=== PATIENT | female | born 1950 | race Asian ===

== ENCOUNTER 2023-05-02 15:49 | Inpatient (IN) | payer OTHER ==
[~2023-05-02] VITALS: Ht 167.6 cm; Wt 57.2 kg
[2023-05-02 16:00] VITALS: BP_SYST 120; PULSE 123; RESP 18; TEMP 98.3; O2SAT 96
[2023-05-02 17:12] LABS: BILIRUBIN,URINE NEGATIVE (NEGATIVE); BLOOD, URINE 2+ (NEGATIVE); CLARITY/URINE CLEAR (CLEAR); COLOR,URINE YELLOW (YELLOW); GLUCOSE,URINE 2+ (NEGATIVE); KETONES,URINE TRACE (NEGATIVE); LEUKOCYTE ESTERASE ,URINE NEGATIVE (NEGATIVE); NITRITE, URINE NEGATIVE (NEGATIVE); PH,URINE 5.5 (5.0-8.0); PROTEIN URINE 1+ (NEGATIVE); UROBILINOGEN,URINE 0.2 (0.2-1.0)
[2023-05-02 17:13] LABS: BACTERIA,URINE FEW /HPF (None Seen); MUCUS,URINE None Seen /LPF (None Seen); RBC,URINE 0-3 /HPF (0-3); WBC,URINE 0-3 /HPF (0-3)
[2023-05-02 17:27] LABS: BASOPHILS % (AUTO) 0.2 % (0.0-2.0); HEMATOCRIT 40.2 % (36-48); HEMOGLOBIN 12.9 g/dL (12.0-16.0); LYMPHOCYTES # (AUTO) 0.7 K/uL (1.0-5.5); LYMPHOCYTES % (AUTO) 7.2 % (20.5-51.5); MEAN CORPUSCULAR HEMOGLOBIN 26 pg (27-31); MEAN CORPUSCULAR HGB CONC 32 % (32-36); MEAN CORPUSCULAR VOLUME 81 fL (79.0-98.0); MONOCYTES # (AUTO) 0.5 K/uL (0.0-1.0); MONOCYTES % (AUTO) 5.7 % (1.7-9.3); NEUTROPHILS # (AUTO) 8.4 K/uL (1.8-7.7); NEUTROPHILS % (AUTO) 86.9 % (40.0-70.0); PLATELET COUNT (AUTO) 170 K/uL (130-430); RED BLOOD CELL COUNT(AUTO) 4.96 MIL/uL (4.2-6.2); RED CELL DISTRIBUTION WIDTH 15.3 % (9.0-15.0); WHITE BLOOD COUNT (AUTO) 9.7 K/uL (4.8-10.8)
[2023-05-02] MEDS ORDERED: NACL 0.9% 1,000 ML IV ONE ×3 (17:45→21:45)
[2023-05-02] MEDS ORDERED: ONDANSETRON HCL 4 MG/2 ML VIAL IVP ONE ×2 (17:45→21:45)
[2023-05-02] MEDS ORDERED: KETOROLAC TROMETHAMINE 30 MG VIAL IVP ONE (17:45)
[2023-05-02] MEDS ORDERED: PANTOPRAZOLE SODIUM 40 MG/VIAL (PROTONIX) IVP ONE (17:45)
[2023-05-02 18:22] LABS: ALANINE AMINOTRANSFERASE 12 U/L (12-78); ALBUMIN 3.3 g/dL (3.4-4.8); ANION GAP 14 (5-15); ASPARTATE AMINOTRANSFERASE 12 U/L (10-37); CALCIUM 8.7 mg/dL (8.4-11.0); CARBON DIOXIDE 20 mmol/L (23-29); CHLORIDE 90 mmol/L (98-107); CREATININE 1.32 mg/dL (0.55-1.30); LIPASE 29 U/L (73-393); SODIUM SERUM 124 mmol/L (136-145); TOTAL BILIRUBIN 0.6 mg/dL (0.0-1.0); TOTAL PROTEIN, SERUM 7.6 g/dL (6.4-8.3); UREA NITROGEN, BLOOD 17 mg/dL (8-21)
[2023-05-02 18:24] LABS: GLUCOSE 409 mg/dL (74-106)
[2023-05-02] MEDS ORDERED: cefTRIAXone 1 GM in D5W 50 ML IV ONE (20:15)
[2023-05-02] MEDS ORDERED: INSULIN REGULAR, HUMAN 10 UNITS/0.1 ML, 3 ML VIAL IVP ONE (20:30)
[2023-05-02] MEDS ORDERED: cefTRIAXone 1 GM VIAL ONE (20:38)
[2023-05-02] MEDS ORDERED: METF-380 PO (20:40)
[2023-05-02] MEDS ORDERED: NEU300 PO (20:40)
[2023-05-02] MEDS ORDERED: LIP10 PO (20:40)
[2023-05-02] MEDS ORDERED: OSCD500 PO (20:40)
[2023-05-02] MEDS ORDERED: LOSA50TA3 PO (20:40)
[2023-05-02] MEDS ORDERED: SITA100T11 PO (20:40)
[2023-05-02] MEDS ORDERED: GLIP10TA21 PO (20:40)
[2023-05-03] VITALS (7 sets, daily range): BP systolic 86–137; PULSE 90–133; RESP 17–20; TEMP 97.7–101.7; O2SAT 95–99
[2023-05-03] MEDS ORDERED: DEXTROSE 50%-WATER 50 ML DISP.SYRIN IVP PRN (07:00)
[2023-05-03] MEDS ORDERED: GLUCOSE (DEXTROSE) ORAL GEL -Adults PO PRN (07:00)
[2023-05-03] MEDS ORDERED: D5W 1,000 ML IV PRN (07:00)
[2023-05-03] MEDS: PANTOPRAZOLE SODIUM 40 MG/VIAL (PROTONIX) IVP SCH (09:25)
[2023-05-03] MEDS: LEVOFLOXACIN 250 MG/D5W 50 ML IV SCH (09:27)
[2023-05-03 12:44] LABS: ABG O2 SAT% ESTIMATE 96.9 % (94.0-100.0); BLOOD GAS BASE EXCESS -4.2 mmol/L (-3.0-3.0); BLOOD GAS HCO3 18.7 mmol/L (21.0-27.0); BLOOD GAS PCO2 28.9 mmHg (35.0-45.0); BLOOD GAS PH 7.428 (7.350-7.450); BLOOD GAS PO2 86.2 mmHg (75.0-100.0)
[2023-05-03 12:52] LABS: ALLEN'S TEST POSITIVE (P)
[2023-05-03] MEDS: metroNIDAZOLE 500 mg/NS 100 ML IV SCH (21:23)
[2023-05-03] MEDS ORDERED: GABAPENTIN 100 MG CAPSULE PO ONE (23:30)
[2023-05-04] VITALS (8 sets, daily range): BP systolic 101–131; PULSE 78–89; RESP 16–18; TEMP 96.8–99.1; O2SAT 99–100
[2023-05-04] MEDS: INSULIN REGULAR, HUMAN 100 UNITS/ML, 3 ML VIAL (humuLIN R) SUBCUT PRN ×2 (06:07→12:07)
[2023-05-04] MEDS: PANTOPRAZOLE SODIUM 40 MG/VIAL (PROTONIX) IVP SCH (09:06)
[2023-05-04] MEDS: ATORVASTATIN 10 MG TABLET PO SCH (09:06)
[2023-05-04] MEDS: CALCIUM CARBONATE/VITAMIN D3 1 TAB TABLET PO SCH (09:06)
[2023-05-04] MEDS: glipiZIDE XL 5 MG TAB ( GLUCOTROL XL) PO SCH (09:07)
[2023-05-04] MEDS: LEVOFLOXACIN 250 MG/D5W 50 ML IV SCH (09:07)
[2023-05-04] MEDS: LOSARTAN POTASSIUM 50 MG TABLET (COZAAR) PO SCH (09:07)
[2023-05-04] MEDS ORDERED: ACETAMINOPHEN 325 MG TABLET PO ONE (13:15)
[2023-05-04] MEDS ORDERED: MENTHOL/ZINC OXIDE 113 GM OINT. TP PRN (14:30)
[2023-05-04] MEDS ORDERED: GABAPENTIN 100 MG CAPSULE PO ONE (14:30)
[2023-05-04] MEDS: FUROSEMIDE 20 MG TABLET PO SCH (22:31)
[2023-05-04] MEDS: metroNIDAZOLE 500 mg/NS 100 ML IV SCH (22:31)
[2023-05-04] MEDS: GABAPENTIN 100 MG CAPSULE PO SCH (22:31)
[2023-05-05 00:33] VITALS: BP_SYST 131; PULSE 86; RESP 16; TEMP 96.9; O2SAT 100
[2023-05-05] MEDS: INSULIN REGULAR, HUMAN 100 UNITS/ML, 3 ML VIAL (humuLIN R) SUBCUT PRN ×2 (00:35→12:03)
[2023-05-05] MEDS ORDERED: ACETAMINOPHEN 325 MG TABLET ONE (00:51)
[2023-05-05] MEDS: ACETAMINOPHEN 325 MG TABLET PO PRN (01:22)
[2023-05-05 10:35] LABS: BASOPHILS % (AUTO) 0.3 % (0.0-2.0); EOSINOPHILS # (AUTO) 0.1 K/uL (0.0-0.4); HEMATOCRIT 31.6 % (36-48); HEMOGLOBIN 10.6 g/dL (12.0-16.0); LYMPHOCYTES # (AUTO) 0.6 K/uL (1.0-5.5); LYMPHOCYTES % (AUTO) 16.1 % (20.5-51.5); MEAN CORPUSCULAR HEMOGLOBIN 26 pg (27-31); MEAN CORPUSCULAR HGB CONC 34 % (32-36); MEAN CORPUSCULAR VOLUME 78 fL (79.0-98.0); MONOCYTES # (AUTO) 0.4 K/uL (0.0-1.0); MONOCYTES % (AUTO) 11.6 % (1.7-9.3); NEUTROPHILS # (AUTO) 2.5 K/uL (1.8-7.7); PLATELET COUNT (AUTO) 135 K/uL (130-430); RED BLOOD CELL COUNT(AUTO) 4.06 MIL/uL (4.2-6.2); WHITE BLOOD COUNT (AUTO) 3.6 K/uL (4.8-10.8)
[2023-05-05 10:46] LABS: ANION GAP 12 (5-15); CARBON DIOXIDE 24 mmol/L (23-29); CHLORIDE 99 mmol/L (98-107); CREATININE 0.86 mg/dL (0.55-1.30); GLUCOSE 314 mg/dL (74-106); SODIUM SERUM 135 mmol/L (136-145); UREA NITROGEN, BLOOD 6 mg/dL (8-21)
[2023-05-05 10:48] LABS: POTASSIUM 2.9 mmol/L (3.5-5.1)
[2023-05-05] MEDS: LEVOFLOXACIN 250 MG/D5W 50 ML IV SCH (11:03)
[2023-05-05] MEDS: PANTOPRAZOLE SODIUM 40 MG/VIAL (PROTONIX) IVP SCH (11:04)
[2023-05-05] MEDS: ATORVASTATIN 10 MG TABLET PO SCH (11:49)
[2023-05-05] MEDS: FUROSEMIDE 20 MG TABLET PO SCH ×2 (11:49→21:08)
[2023-05-05] MEDS: CALCIUM CARBONATE/VITAMIN D3 1 TAB TABLET PO SCH (11:49)
[2023-05-05] MEDS: LOSARTAN POTASSIUM 50 MG TABLET (COZAAR) PO SCH (11:50)
[2023-05-05] MEDS: glipiZIDE XL 5 MG TAB ( GLUCOTROL XL) PO SCH (11:50)
[2023-05-05] MEDS ORDERED: DIPHENOXYLATE HCL/ATROP SULF 2.5 MG TAB PO PRN (14:45)
[2023-05-05 16:31] VITALS: O2SAT 98
[2023-05-05] MEDS ORDERED: POTASSIUM CHLORIDE 40 MEQ in NS 250 ML IV ONE (18:30)
[2023-05-05] MEDS: POTASSIUM CHLORIDE 20 mEq in 100 mL (PREMIX) 100 ML x 2 doses IV SCH ×2 (18:31→20:09)
[2023-05-05 19:00] VITALS: BP_SYST 133; PULSE 78; RESP 18; TEMP 97; O2SAT 100
[2023-05-05 20:00] VITALS: BP_SYST 133; PULSE 78; RESP 18; TEMP 97; O2SAT 100
[2023-05-05] MEDS: GABAPENTIN 100 MG CAPSULE PO SCH (21:08)
[2023-05-05] MEDS: VANCOMYCIN HCL ORAL SOLUTION 125 MG/5 ML, 150 ML PO SCH (21:09)
[2023-05-05] MEDS: metroNIDAZOLE 500 mg/NS 100 ML IV SCH (21:15)
[2023-05-06 00:11] VITALS: BP_SYST 137; PULSE 81; RESP 18; TEMP 98.1; O2SAT 100
[2023-05-06] MEDS: ACETAMINOPHEN 325 MG TABLET PO PRN (00:38)
[2023-05-06 07:00] LABS: ALANINE AMINOTRANSFERASE 50 U/L (12-78); ALBUMIN 2.5 g/dL (3.4-4.8); ANION GAP 11 (5-15); ASPARTATE AMINOTRANSFERASE 41 U/L (10-37); CALCIUM 8.3 mg/dL (8.4-11.0); CARBON DIOXIDE 27 mmol/L (23-29); CHLORIDE 100 mmol/L (98-107); CREATININE 0.75 mg/dL (0.55-1.30); GLUCOSE 159 mg/dL (74-106); SODIUM SERUM 138 mmol/L (136-145); TOTAL BILIRUBIN 0.5 mg/dL (0.0-1.0); TOTAL PROTEIN, SERUM 6.2 g/dL (6.4-8.3); UREA NITROGEN, BLOOD 7 mg/dL (8-21)
[2023-05-06 07:03] LABS: POTASSIUM 2.9 mmol/L (3.5-5.1)
[2023-05-06 08:00] VITALS: BP_SYST 140; PULSE 82; RESP 17; TEMP 96.7; O2SAT 100
[2023-05-06] MEDS: VANCOMYCIN HCL ORAL SOLUTION 125 MG/5 ML, 150 ML PO SCH ×4 (08:50→20:46)
[2023-05-06] MEDS: CALCIUM CARBONATE/VITAMIN D3 1 TAB TABLET PO SCH (08:50)
[2023-05-06] MEDS: glipiZIDE XL 5 MG TAB ( GLUCOTROL XL) PO SCH (08:50)
[2023-05-06] MEDS: LOSARTAN POTASSIUM 50 MG TABLET (COZAAR) PO SCH (08:51)
[2023-05-06] MEDS: ATORVASTATIN 10 MG TABLET PO SCH (08:51)
[2023-05-06] MEDS: FUROSEMIDE 20 MG TABLET PO SCH ×2 (08:51→20:44)
[2023-05-06] MEDS: LEVOFLOXACIN 250 MG/D5W 50 ML IV SCH (09:13)
[2023-05-06] MEDS: PANTOPRAZOLE SODIUM 40 MG/VIAL (PROTONIX) IVP SCH (09:14)
[2023-05-06 09:22] VITALS: O2SAT 100
[2023-05-06] MEDS ORDERED: POTASSIUM CHLORIDE 20 MEQ TAB.PRT.SR PO ONE (10:00)
[2023-05-06] MEDS: INSULIN REGULAR, HUMAN 100 UNITS/ML, 3 ML VIAL (humuLIN R) SUBCUT PRN ×3 (11:12→20:43)
[2023-05-06 12:00] VITALS: BP_SYST 148; PULSE 92; RESP 18; TEMP 98.6; O2SAT 99
[2023-05-06 16:00] VITALS: BP_SYST 138; PULSE 84; RESP 17; TEMP 97.2; O2SAT 99
[2023-05-06 20:00] VITALS: BP_SYST 126; PULSE 82; RESP 17; TEMP 97.5; O2SAT 100
[2023-05-06] MEDS: GABAPENTIN 100 MG CAPSULE PO SCH (20:44)
[2023-05-07] VITALS: BP_SYST 119; PULSE 72; RESP 16; TEMP 97.5; O2SAT 98
[2023-05-07] MEDS: metroNIDAZOLE 500 mg/NS 100 ML IV SCH (00:51)
[2023-05-07 05:56] LABS: BASOPHILS % (AUTO) 0.3 % (0.0-2.0); EOSINOPHILS # (AUTO) 0.3 K/uL (0.0-0.4); HEMATOCRIT 34.3 % (36-48); HEMOGLOBIN 11.3 g/dL (12.0-16.0); LYMPHOCYTES % (AUTO) 15.7 % (20.5-51.5); MEAN CORPUSCULAR HEMOGLOBIN 26 pg (27-31); MEAN CORPUSCULAR HGB CONC 33 % (32-36); MEAN CORPUSCULAR VOLUME 78 fL (79.0-98.0); MONOCYTES % (AUTO) 14.9 % (1.7-9.3); NEUTROPHILS # (AUTO) 4.2 K/uL (1.8-7.7); NEUTROPHILS % (AUTO) 65.1 % (40.0-70.0); PLATELET COUNT (AUTO) 206 K/uL (130-430); RED CELL DISTRIBUTION WIDTH 15.1 % (9.0-15.0); WHITE BLOOD COUNT (AUTO) 6.5 K/uL (4.8-10.8)
[2023-05-07] MEDS: INSULIN REGULAR, HUMAN 100 UNITS/ML, 3 ML VIAL (humuLIN R) SUBCUT PRN ×2 (05:58→11:32)
[2023-05-07 06:06] LABS: ANION GAP 10 (5-15); CALCIUM 8.2 mg/dL (8.4-11.0); CARBON DIOXIDE 29 mmol/L (23-29); CHLORIDE 102 mmol/L (98-107); CREATININE 0.75 mg/dL (0.55-1.30); ERYTHROCYTE SEDIMENTATION RATE 41 MM/HR (0-20); GLUCOSE 160 mg/dL (74-106); POTASSIUM 3.4 mmol/L (3.5-5.1); SODIUM SERUM 141 mmol/L (136-145); UREA NITROGEN, BLOOD 8 mg/dL (8-21)
[2023-05-07 08:00] VITALS: BP_SYST 135; PULSE 81; RESP 16; TEMP 97.1; O2SAT 100
[2023-05-07] MEDS: glipiZIDE XL 5 MG TAB ( GLUCOTROL XL) PO SCH (09:20)
[2023-05-07] MEDS: FUROSEMIDE 20 MG TABLET PO SCH (09:20)
[2023-05-07] MEDS: CALCIUM CARBONATE/VITAMIN D3 1 TAB TABLET PO SCH (09:20)
[2023-05-07] MEDS: ATORVASTATIN 10 MG TABLET PO SCH (09:20)
[2023-05-07] MEDS: LOSARTAN POTASSIUM 50 MG TABLET (COZAAR) PO SCH (09:21)
[2023-05-07] MEDS: VANCOMYCIN HCL ORAL SOLUTION 125 MG/5 ML, 150 ML PO SCH ×2 (09:24→12:42)
[2023-05-07] MEDS: PANTOPRAZOLE SODIUM 40 MG/VIAL (PROTONIX) IVP SCH (10:22)
[2023-05-07] MEDS: LEVOFLOXACIN 250 MG/D5W 50 ML IV SCH (10:22)
[2023-05-07 12:00] VITALS: BP_SYST 142; PULSE 95; RESP 16; TEMP 97.1; O2SAT 100
[2023-05-07] MEDS ORDERED: POTASSIUM CHLORIDE 20 MEQ TAB.PRT.SR PO ONE (12:00)
[2023-05-07] MEDS ORDERED: VANC125C10 PO (13:01)
[2023-05-07] MEDS ORDERED: LEVO250T73 PO (13:01)
[2023-05-07 14:38] VITALS: BP_SYST 142; PULSE 95; RESP 16; TEMP 97.1; O2SAT 100
== END 2023-05-07 14:55 | disposition home or self-care (01) | DRG 391 ==
LOC: SED 15:49 → SMU 21:39 → STU 23:30 → SMU 05-05 04:00
PROVIDERS: ADMIT Specialist; ATTEND Specialist
DX: K52.9 Noninfective gastroenteritis and colitis, unspecified (principal); N17.0 Acute kidney failure with tubular necrosis; E87.20 Acidosis, unspecified; D64.9 Anemia, unspecified; E83.52 Hypercalcemia; E87.5 Hyperkalemia; E78.5 Hyperlipidemia, unspecified; E11.65 Type 2 diabetes mellitus with hyperglycemia; T38.3X5A Adverse effect of insulin and oral hypoglycemic [antidiabetic] drugs, initial encounter; Z79.899 Other long term (current) drug therapy; Y92.89 Other specified places as the place of occurrence of the external cause
CPT/HCPCS: 36415; 76376; 80048; 80053; 81000; 82803; 82962; 83605; 83690; 83735; 84484; 85025; 85651-TC; 87040; 87045-TC; 87046; 89055; 93005; 94760; 96361; 96365; 96372; 96375; 97116-GP; 97163-GP; 99285; C9113; G0378; J0696; J1815; J1885; J1956; J2405; J3480; J3490; J7030; J7050